=== PATIENT | female | born 1940 | race Two or more races ===

== ENCOUNTER 2017-03-25 15:41 | Emergency (ER) | payer BC, MEDICARE ==
[~2017-03-25] VITALS: Ht 149.9 cm; Wt 65.8 kg
--- NOTE | 2017-03-25 15:23 | Emergency Room Report ---
History of Present Illness General Chief Complaint: Multiple Trauma/Fall Source: Patient, EMS Present Illness HPI Patient is a 76 her old female presented after having a fall. Patient reports having increased pain to her right shoulder. She denies any pain to her wrist or elbow. The patient did not lose consciousness. She reports having no pain to her neck or head. She denies any lower extremity pain. Patient stated that she tripped. She denies any other locations of pain at this time. Allergies: Coded Allergies: PENICILLINS (Verified Allergy, Unknown, 03/25/17) Patient History Reviewed Nursing Documentation: PMH: Agreed, PSxH: Agreed Review of Systems All Other Systems: negative except mentioned in HPI Physical Exam Vital Signs Date Time Temp Pulse Resp B/P (MAP) Pulse Ox O2 Delivery O2 Flow Rate FiO2 03/25/17 15:08 98.1 76 16 142/78 100 Room Air General Appearance: well appearing, no apparent distress, alert, GCS 15, non- toxic Head: normocephalic, atraumatic ENT: hearing grossly normal, normal voice Neck: full range of motion, supple Respiratory: no respiratory distress, speaking full sentences Musculoskeletal: decreased range of mation - right shoulder, other - wrist and elbow nontender without deformity Neurologic: alert, oriented x3, responsive, dispensing operator III-XII nml as tested, normal gait Psychiatric: normal inspection, judgement/insight normal, mood/affect normal Skin: no rash Medical Decision Making Diagnostic Impression: Primary Impression: Fall Additional Impression: Proximal humerus fracture ER Course This presented for fall. Differential diagnoses included was not limited to fracture, dislocation, a.c. separation, septic joint. X-ray imaging of the right shoulder three-view interpreted by me showed comminuted right proximal humerus fracture. The patient was noted to have intact pulses she is placed in a shoulder mobilizer. She is advised followup with primary care doctor for orthopedics referal for further management Last Vital Signs Date Time Temp Pulse Resp B/P (MAP) Pulse Ox O2 Delivery O2 Flow Rate FiO2 03/25/17 15:08 98.1 76 16 142/78 100 Room Air Status: improved Disposition: HOME, SELF-CARE Condition: Stable Scripts Docusate Sodium* (COLACE*) 100 Mg Capsule 100 MG ORAL TWICE A DAY, #30 CAP Prov: Satnam Barron 03/25/17 Hydrocodone Bit/Acetaminophen 5-325* (NORCO 5-325*) 1 Each Tablet 1 TAB ORAL Q6H Y for For Pain, #20 TAB 0 Refills Prov: Satnam Barron 03/25/17 Satnam Barron Mar 25, 2017 15:23
[2017-03-25 16:19] VITALS: BP 142/78
[2017-03-25] MEDS ORDERED: NORCO 5-325 TA1 EACH ORAL (16:38)
[2017-03-25] MEDS ORDERED: COLACE100 MG ORAL (16:38)
[2017-03-25 17:45] VITALS: BP 138/68
--- NOTE | 2017-03-26 11:08 | Diagnostic Imaging Report ---
Indication: Pain Technique: XRAY Shoulder Compl R Comparison: None Findings: There is an acute, mildly comminuted and mildly displaced fracture of the proximal humerus. There is no associated dislocation. No additional fracture identified. Imaged right lung is clear. Impression: Acute mildly comminuted and displaced fracture of the proximal humerus. This corresponds with the interpretation of the treating ER physician.
== END 2017-03-25 17:47 | disposition home or self-care (01) ==
LOC: EDBD 15:41 → EMR 15:50
DX: S42.291A Other displaced fracture of upper end of right humerus, initial encounter for closed fracture (principal); W01.0XXA Fall on same level from slipping, tripping and stumbling without subsequent striking against object, initial encounter; Y92.414 Local residential or business street as the place of occurrence of the external cause; Z88.0 Allergy status to penicillin
CPT/HCPCS: 99283